=== PATIENT | male | born 1945 | race Caucasian/White ===

== ENCOUNTER 2023-08-09 05:52 | Inpatient (IN) | payer OTHER ==
[~2023-08-09] VITALS: Ht 175.3 cm; Wt 65.7 kg
[2023-08-09 06:52] LABS: BASOPHILS % 0.7 % (0.0-2.0); DIFFERENTIAL COMMENT 0; EOSINOPHILS % 1.9 % (0.0-5.0); HEMATOCRIT. 37.7 % (42.0-52.0); HEMOGLOBIN. 12.3 g/dL (14.0-18.0); LYMPHOCYTES % 7.6 % (20.0-50.0); MEAN CORPUSCULAR HEMOGLOBIN 25.8 pg (28.0-32.0); MEAN CORPUSCULAR HGB CONC 32.7 g/dL (31.0-37.0); MEAN PLATELET VOLUME 8.1 fl (7.4-10.4); MONOCYTES % 7.7 % (2.0-8.0); NEUTROPHILS % 82.1 % (40.0-76.0); PLATELET 473 x1000/uL (130-400); RED BLOOD CELL COUNT 4.77 mill/uL (4.7-6.1); RED CELL DISTRIBUTION WIDTH 17.6 % (11.6-14.6); WHITE BLOOD COUNT 9.2 x1000/uL (4.5-11.0)
[2023-08-09 06:54] LABS: CHLORIDE 107 mEq/L (98-107); POTASSIUM 3.9 mEq/L (3.5-5.1); SODIUM 138 mEq/L (136-145)
[2023-08-09 06:55] LABS: CARBON DIOXIDE 21 mEq/L (21-32)
[2023-08-09 07:00] LABS: GLUCOSE 154 mg/dL (70-105); UREA NITROGEN BLOOD 22 mg/dL (9-23)
[2023-08-09 07:03] LABS: TROPONIN I HIGH SENSITIVITY 26 ng/L (3.0-53)
[2023-08-09 11:08] LABS: TROPONIN I HIGH SENSITIVITY 189 ng/L (3.0-53)
[2023-08-09] MEDS ORDERED: ONDANSETRON HCL 4MG/2ML INJ IV PRN (13:00)
[2023-08-09] MEDS ORDERED: ACETAMINOPHEN 325MG TABLET PO PRN (13:00)
[2023-08-09] MEDS ORDERED: CLONIDINE 0.1MG TABLET PO PRN (13:00)
[2023-08-09] MEDS ORDERED: ZOLPIDEM TARTRATE 5MG TABLET PO PRN (13:00)
[2023-08-09] MEDS ORDERED: MAGNESIUM/ALUMINUM HYDROXIDE/SIMETHICONE 30ML UDC PO PRN (13:00)
[2023-08-09] MEDS: SODIUM CHLORIDE 0.9% INJ 3ML FLUSH IVF SCH (14:50)
[2023-08-09 16:00] VITALS: BP 127/68; PULSE 88; RESP 26; TEMP 97.5
[2023-08-09 16:56] LABS: TROPONIN I HIGH SENSITIVITY 355 ng/L (3.0-53)
[2023-08-09] MEDS: DILTIAZEM HCL 30MG TABLET PO SCH (17:11)
[2023-08-09 18:00] LABS: TROPONIN I HIGH SENSITIVITY 377 ng/L (3.0-53)
[2023-08-09 20:00] VITALS: BP 115/65; PULSE 83; RESP 21; TEMP 98.6
[2023-08-09] MEDS: BENZONATATE 100MG CAPSULE PO PRN (22:40)
[2023-08-09 23:16] VITALS: PULSE 75; RESP 26; O2SAT 98
[2023-08-09] MEDS: IPRATROPIUM/ALBUTEROL 0.5-3(2.5)MG/3ML NEB HHN PRN (23:16)
[2023-08-10] VITALS (11 sets, daily range): BP systolic 110–135; BP diastolic 59–70; PULSE 68–87; RESP 19–24; TEMP 97.3–98.3; O2SAT 95–98
[2023-08-10 00:48] LABS: TROPONIN I HIGH SENSITIVITY 409 ng/L (3.0-53)
[2023-08-10 11:23] LABS: PROTHROMBIN TIME 11.6 sec (9.6-11.0)
[2023-08-10] MEDS ORDERED: DEXTROSE 50% WATER 50ML SYRINGE IV PRN (11:45)
[2023-08-10] MEDS: BLOOD SUGAR DIAGNOSTIC STRIP TEST SCH (11:50)
[2023-08-10] MEDS: IPRATROPIUM/ALBUTEROL 0.5-3(2.5)MG/3ML NEB HHN SCH (12:47)
[2023-08-10] MEDS: ACETYLCYSTEINE 200MG/ML 20% VIAL 4ML INH SCH (15:55)
[2023-08-10 15:58] LABS: LACTATE DEHYDROGENASE 216 IU/L (120-246)
[2023-08-10 16:47] LABS: PROTEIN BODY FLUID 3.7 gm/dL
[2023-08-10] MEDS ORDERED: SITA1TBM7 PO (17:24)
[2023-08-10] MEDS ORDERED: TAMS-11 PO (17:26)
[2023-08-10] MEDS ORDERED: LEVO88TA7 PO (17:26)
[2023-08-10] MEDS ORDERED: BENA1TAB18 PO (17:26)
[2023-08-10] MEDS ORDERED: ATOR-2 PO (17:26)
[2023-08-10 17:45] LABS: BODY FLUID MONOCYTES 4 %; BODY FLUID RBC 19250 /cu mm (0-2000); BODY FLUID WBC 678 /cu mm (0-200)
[2023-08-11] VITALS (10 sets, daily range): BP systolic 116–135; BP diastolic 64–82; PULSE 68–97; RESP 16–25; TEMP 97.1–98.2; O2SAT 98–99
[2023-08-11] MEDS: DILTIAZEM HCL 5MG/ML 5ML VIAL IV NR (06:36)
[2023-08-11 07:38] LABS: LACTATE DEHYDROGENASE 215 IU/L (120-246)
[2023-08-11] MEDS: SODIUM BICARBONATE 4% (2.4MEQ) 5ML VIAL IV ONE (08:12)
[2023-08-11 12:20] LABS: BODY FLUID MONOCYTES 1 %; BODY FLUID RBC 4520 /cu mm (0-2000); BODY FLUID WBC 985 /cu mm (0-200)
[2023-08-11 12:41] LABS: PROTEIN BODY FLUID 3.4 gm/dL
[2023-08-11] MEDS: ACETAMINOPHEN 325MG TABLET PO PRN (15:43)
[2023-08-11] MEDS ORDERED: DILT-27 PO (16:06)
[2023-08-12] MEDS ORDERED: DILTIAZEM HCL 120MG CAPSULE ER 24HR PO SCH (09:00)
== END 2023-08-11 17:24 | disposition home or self-care (01) | DRG 308 ==
LOC: ER 05:52 → 5WST 06:49 → EDBEDREQ 06:51 → 3WST 15:24
PROVIDERS: ADMIT Internal Medicine; ATTEND Internal Medicine
PROC: 0W9B3ZZ Drainage of Left Pleural Cavity, Percutaneous Approach (ICD-10-PCS; principal; 2023-08-11)
DX: I47.19 Other supraventricular tachycardia (principal); J96.01 Acute respiratory failure with hypoxia; J84.9 Interstitial pulmonary disease, unspecified; J44.1 Chronic obstructive pulmonary disease with (acute) exacerbation; R79.89 Other specified abnormal findings of blood chemistry; E03.9 Hypothyroidism, unspecified; E11.9 Type 2 diabetes mellitus without complications; I50.9 Heart failure, unspecified; I11.0 Hypertensive heart disease with heart failure; J44.9 Chronic obstructive pulmonary disease, unspecified; Z87.891 Personal history of nicotine dependence; Z99.81 Dependence on supplemental oxygen; Z85.028 Personal history of other malignant neoplasm of stomach; Z79.899 Other long term (current) drug therapy
CPT/HCPCS: 32555; 36415; 71045; 71250; 80048; 82040; 82962; 83036; 83615; 83735; 83880; 84484; 85025; 88108; 93005; 94640; 99285; J3490; J7608